=== PATIENT | female | born 1960 | race African-American/Black ===

== ENCOUNTER 2024-11-21 13:02 | Emergency (ER) | payer MEDICAID, OTHER ==
[~2024-11-21] VITALS: Ht 160 cm; Wt 70.0 kg
[2024-11-21 13:07] VITALS: BP 127/64; PULSE 65; RESP 18; TEMP 98.2; O2SAT 96
[2024-11-21 14:42] LABS: BASOPHILS % 0.8 % (0.0-2.0); EOSINOPHILS % 3.6 % (0.0-5.0); HEMATOCRIT. 30.4 % (36.0-48.0); HEMOGLOBIN. 9.9 g/dL (12.0-16.0); LYMPHOCYTES % 23.6 % (20.0-50.0); MEAN CORPUSCULAR HEMOGLOBIN 27.3 pg (28.0-32.0); MEAN CORPUSCULAR HGB CONC 32.5 g/dL (31.0-37.0); MEAN CORPUSCULAR VOLUME 84.2 fL (81.0-99.0); MEAN PLATELET VOLUME 7.4 fl (7.4-10.4); MONOCYTES % 4.9 % (2.0-8.0); NEUTROPHILS % 67.1 % (40.0-76.0); PLATELET 261 x1000/uL (130-400); RED BLOOD CELL COUNT 3.61 mill/uL (4.2-5.4); RED CELL DISTRIBUTION WIDTH 15.5 % (11.6-14.6); WHITE BLOOD COUNT 7.8 x1000/uL (4.5-11.0)
[2024-11-21 14:47] LABS: CHLORIDE 108 mEq/L (98-107); POTASSIUM 4.2 mEq/L (3.5-5.1); SODIUM 139 mEq/L (136-145)
[2024-11-21 14:48] LABS: CALCIUM 9.1 mg/dL (8.7-10.4); CARBON DIOXIDE 23 mEq/L (21-32)
[2024-11-21 14:53] LABS: GLUCOSE 135 mg/dL (70-105); UREA NITROGEN BLOOD 29 mg/dL (9-23)
[2024-11-21 14:55] LABS: TROPONIN I HIGH SENSITIVITY 9 ng/L (3.0-34)
== END 2024-11-21 14:47 | disposition left against medical advice (07) ==
LOC: ER 13:02 → EDBD 13:02 → ER 14:47
DX: R55 Syncope and collapse (principal)
CPT/HCPCS: 36415; 71045; 80048; 83880; 84484; 85025; 93005; 99285